=== PATIENT | female | born 1995 | race Two or more races ===

== ENCOUNTER 2023-03-18 11:14 | Emergency (ER) | payer OTHER ==
[~2023-03-18] VITALS: Ht 175.3 cm; Wt 81.6 kg
[2023-03-18] MEDS ORDERED: INTESTINEX680 M1 PO (18:18)
== END 2023-03-18 18:39 | disposition home or self-care (01) ==
LOC: ER 11:14
DX: K52.89 Other specified noninfective gastroenteritis and colitis (principal)